=== PATIENT | male | born 1945 | race Caucasian/White ===

== ENCOUNTER 2017-10-16 14:05 | Emergency (ER) | payer MEDICARE, OTHER ==
[~2017-10-16] VITALS: Ht 182.9 cm; Wt 160.6 kg
[2017-10-16 15:28] LABS: INR 0.95; PROTHROMBIN TIME 13.2 seconds (11.9-14.5)
[2017-10-16 15:29] LABS: PARTIAL THROMBOPLASTIN TIME 24.3 seconds (23.8-35.5)
[2017-10-16 15:36] LABS: ALANINE AMINOTRANSFERASE 17 IU/L (0-55); ALBUMIN/GLOBULIN RATIO 0.7 (0.8-2.0); ALKALINE PHOSPHATASE 52 IU/L (40-150); BLOOD UREA NITROGEN 11 mg/dL (7-26); BUN/CREATININE RATIO 18 (6-25); CALCIUM 10.9 mg/dL (8.4-10.2); CARBON DIOXIDE 40 mmol/L (22-29); CHLORIDE 94 mmol/L (98-107); CREATINE KINASE 14 IU/L (30-200); CREATININE, SERUM 0.61 mg/dL (0.72-1.25); EST GLOMERULAR FILTRATION RATE > 60 ML/MIN (60-); GLUCOSE 138 mg/dL (74-118); SODIUM 143 mmol/L (136-145)
[2017-10-16] MEDS: SODIUM CHLORIDE 0.9% 1000ML 1,000 ML IV SCH ×2 (15:40→19:30)
[2017-10-16 15:44] LABS: TROPONIN I 0.012 ng/mL (0-0.300)
[2017-10-16] MEDS ORDERED: METHYLPREDNISOLONE SOD SUCC 125 MG/2ML VIAL IV ONE (15:45)
[2017-10-16] MEDS ORDERED: ALBUTEROL/IPRATROPIUM 3 ML NEB NEB ONE (15:45)
[2017-10-16 15:58] LABS: ACETAMINOPHEN < 3 ug/mL (10-30); SALICYLATE < 5.0 mg/dL (0-30)
--- NOTE | 2017-10-16 16:06 | Diagnostic Imaging Report ---
PROCEDURE: A single AP view of the chest. COMPARISON: None. INDICATIONS: AMS TODAY FINDINGS: Lines/tubes: None. Lungs: Left basilar patchy density suggestive of subsegmental atelectasis. Pleura: There is no pneumothorax. Moderate volume right pleural effusion and associated atelectasis versus consolidation. Heart and mediastinum: W this is a widened mediastinum may be in part related to technique rotation. Cardiac silhouette is mildly enlarged. Bones: No acute bony abnormality. IMPRESSION: 1. Findings consistent with moderate volume right pleural effusion and associated atelectasis versus consolidation. Left basilar atelectasis. 2. Widened mediastinum. Mike Camargo M.D. Dictated by: Mike Camargo M.D. on 10/16/2017 at 16:15 Electronically approved by: Mike Camargo M.D. on 10/16/2017 at 16:15
[2017-10-16 16:30] LABS: ABG HCO3 44 mmol/L (23-28); ABG PCO2 90 mmHg (41-51); ABG PO2 72 mmHg (80-105)
--- NOTE | 2017-10-16 17:05 | Diagnostic Imaging Report ---
Examination: CT BRAIN WITHOUT CONTRAST History:Confusion. Altered mental status. Comparison studies:None Technique: Axial images were obtained from the skull base to the vertex. Coronal and sagittal images reconstructed from the axial data. Intravenous contrast: None Findings: Scalp: No abnormalities. Bones: No fractures, blastic or lytic lesions. Brain sulci: Appropriate for age. Ventricles: Normal in size and configuration. No hydrocephalus. Extra-axial space: No abnormalities. Parenchyma: There are subtle confluent areas of hypoattenuation in the periventricular and subcortical white matter, nonspecific. No masses, hemorrhage, or acute or chronic cortical based vascular insults. Sellar/suprasellar region: No abnormalities. Craniocervical junction: Patent foramen magnum. No Chiari one malformation. Incidental findings: None. Impression: 1. No acute intracranial abnormalities. 2. Mild chronic microvascular ischemic change. Signed by: Dr. Lauryn Berger M.D. on 10/16/2017 5:02 PM
[2017-10-16] MEDS ORDERED: ETOMIDATE 2 MG/ML 10 ML INJ IV ONE (17:14)
[2017-10-16] MEDS ORDERED: SUCCINYLCHOLINE CHLORIDE 20 MG/ML 10ML VIAL ONE (17:14)
[2017-10-16 17:20] LABS: ABG HCO3 41 mmol/L (23-28); ABG PCO2 82 mmHg (41-51); ABG PO2 94 mmHg (80-105)
[2017-10-16 17:32] LABS: BASOPHILS % 0.5 % (0.0-1.0); EOSINOPHILS # (AUTO) 0.1 (0.0-0.4); EOSINOPHILS % 1.7 % (0.0-6.0); HEMATOCRIT 35.6 % (38.2-49.6); HEMOGLOBIN 10.7 g/dL (14.0-18.0); LYMPHOCYTES # (AUTO) 1.1 (1.0-3.2); LYMPHOCYTES % 19.2 % (18.0-39.1); MEAN CORPUSCULAR HEMOGLOBIN 32.8 pg (28-32); MEAN CORPUSCULAR HGB CONC 30.1 g/dL (31-35); MEAN CORPUSCULAR VOLUME 109.2 fL (81-99); MONOCYTES # (AUTO) 0.5 (0.2-0.8); MONOCYTES % 8.1 % (4.4-11.3); NEUTROPHILS # (AUTO) 4.2 (2.1-6.9); NEUTROPHILS % 70.2 % (38.7-80.0); PLATELET COUNT 135 x10e3/uL (140-360); RED BLOOD COUNT 3.26 x10e6/uL (4.3-5.7); RED CELL DISTRIBUTION WIDTH 14.1 % (11.7-14.4)
[2017-10-16] MEDS ORDERED: PROPOFOL IV EMULSION 10MG/ML 100 ML ONE (19:24)
[2017-10-16] MEDS ORDERED: ETOMIDATE 2 MG/ML 10 ML INJ IV STA (19:25)
[2017-10-16] MEDS ORDERED: SUCCINYLCHOLINE 200 MG/10 ML SYR IV STA (19:25)
[2017-10-16] MEDS ORDERED: PROPOFOL IV EMULSION 10MG/ML 100 ML IV PRN (19:30)
[2017-10-16] MEDS ORDERED: SODIUM CHLORIDE 0.9% 1000ML 1,000 ML IV ONE (19:30)
[2017-10-16 19:35] LABS: ABG PCO2 74 mmHg (41-51); ABG PH 7.37 (7.31-7.41)
[2017-10-16 19:36] LABS: ABG HCO3 43 mmol/L (23-28); ABG PO2 40 mmHg (80-105)
--- NOTE | 2017-10-16 20:23 | Diagnostic Imaging Report ---
Portable chest x-ray CPT code 57117 INDICATION: Intubated COMPARISON: Chest x-ray 1515 hours FINDINGS: Frontal view of the chest obtained at 1952 hours. The patient is rotated. The cardiac silhouette is enlarged and stable in morphology with aortic ectasia. Endotracheal tube terminates about 5 cm above the vic. The lung bases were not included on the image. Bibasilar airspace opacities are grossly similar. No large effusions. There is no pneumothorax. The osseous structures are stable. IMPRESSION: 1. Endotracheal tube as described above. 2. No new cardiopulmonary process given the limitations of this exam. Signed by: Dr. Christine Mohan MD on 10/16/2017 8:20 PM
[2017-10-16 21:40] LABS: ABG HCO3 37 mmol/L (23-28); ABG PCO2 52 mmHg (41-51); ABG PH 7.46 (7.31-7.41); ABG PO2 79 mmHg (80-105)
--- NOTE | 2017-10-16 21:44 | Diagnostic Imaging Report ---
EXAM: CTA CHEST DATE: 10/16/2017 6:01 PM INDICATION: Widened mediastinum COMPARISON: None TECHNIQUE: Multidetector CT scanning of the chest was performed before and after administration of IV contrast. Coronal and sagittal multiplanar reformations were obtained. CT dissection protocol was performed. IV Contrast: 100 mL Isovue-370 FINDINGS: LUNGS AND PLEURA: ET tube terminates about 5.5 cm above the vic. Elevated right hemidiaphragm. There is complete right lower lobe atelectasis and subsegmental right upper and middle lobe and left lower lobe atelectasis/scarring. HEART, MEDIASTINUM, VESSELS: The heart/mediastinum are shifted to the right. Main pulmonary artery is normal in caliber, 2.6 cm. Aorta is normal in caliber without aneurysm or dissection. Mild scattered atherosclerotic changes/calcification of the aorta and branch vessels. UPPER ABDOMEN: Grossly unremarkable noncontrast appearance. NG tube terminates in the proximal gastric body. MUSCULOSKELETAL: Multilevel degenerative changes. IMPRESSION: 1. No evidence of aortic aneurysm or dissection. 2. Elevated right hemidiaphragm with complete right lower lobe and subsegmental right upper/middle lobe atelectasis. This volume loss results in rightward mediastinal shift. Signed by: Dr Katy Collado MD on 10/16/2017 9:40 PM
[2017-10-16] MEDS ORDERED: SODIUM CHLORIDE 0.9% 50ML 100 ML ONE (22:42)
[2017-10-16] MEDS ORDERED: IOPAMIDOL 370 MG/ML 200 ML INFUS..BTL INJ ONE (22:42)
[2017-10-17] MEDS ORDERED: HYDROMORPHONE 1MG/1ML INJ IV STA (00:45)
[2017-10-17] MEDS ORDERED: HYDROMORPHONE 2MG/ML INJ IV ONE (01:00)
== END 2017-10-17 01:38 | disposition expired ==
LOC: ER 14:05
DX: J96.90 Respiratory failure, unspecified, unspecified whether with hypoxia or hypercapnia (principal); R41.82 Altered mental status, unspecified; J44.1 Chronic obstructive pulmonary disease with (acute) exacerbation; J90 Pleural effusion, not elsewhere classified; E78.5 Hyperlipidemia, unspecified
CPT/HCPCS: 31500; 36415; 36600; 70450; 71010; 71275; 80053; 82550; 82553; 82805; 82948; 83605; 83880; 84484; 85025; 85610; 85730; 93005; 94002; 94660; 99285; G0480 ×2; J0330; J1170; J2930; J7030; Q9967; 80329